=== PATIENT | male | born 1935 | race Caucasian/White ===

== ENCOUNTER 2017-09-04 22:51 | Inpatient (IN) ==
[2017-09-04 23:30] LABS: Basophils # 0.1 K/mcL (0.0-0.2); Basophils % 0.4 %; Eosinophils # 0.4 K/mcL (0.0-0.6); Eosinophils % 3.4 %; Hematocrit 40.8 % (37.5-50.1); Hemoglobin 13.3 g/dL (12.9-16.9); Immature Granulocytes % 0.8 % (0-4); Lymphocytes # 1.4 K/mcL (0.6-4.6); Lymphocytes % 11.6 %; Mean Corpuscular HGB Conc 32.6 g/dL (31.6-35.5); Mean Corpuscular Hemoglobin 29.9 pg (28.0-33.3); Mean Corpuscular Volume 91.7 fL (83.0-100.0); Mean Platelet Volume 9.3 fL (9.4-12.4); Monocytes # 0.6 K/mcL (0.0-1.3); Monocytes % 4.6 %; Neutrophils # 9.5 K/mcL (1.6-8.9); Platelet Count 246 K/mcL (140-400); Red Blood Count 4.45 M/mcL (4.19-5.50); Red Cell Distribution Width 13.2 % (11.5-14.5); Segmented Neutrophils % 79.2 %
[2017-09-04 23:41] LABS: INR 2.2; Prothrombin Time 23.9 Seconds (9.4-12.1)
[2017-09-04 23:43] LABS: Activated Partial Thrombo Time 40.2 Seconds (26.0-36.0)
[2017-09-04 23:49] LABS: Troponin I < 0.03 ng/mL (< 0.04)
--- NOTE | 2017-09-05 00:27 | Emergency Department Note ---
Disposition Clinical Impression: Community acquired pneumonia Qualifiers: Laterality: unspecified laterality Qualified Code(s): J18.9 - Pneumonia, unspecified organism Dyspnea Qualifiers: Dyspnea type: unspecified Qualified Code(s): R06.00 - Dyspnea, unspecified Disposition: Admitted As Inpatient Condition: Good Time of Disposition: 02:09 SOB HPI - General Chief Complaint: ED Shortness of Breath/Dyspnea Stated Complaint: MARTI, Cough Time Seen by Provider: 09/04/17 23:07 Source: patient Limitations: no limitations Nursing Notes Reviewed: Yes Vital Signs Reviewed: Yes - History of Present Illness 82-year-old male complains of difficulty breathing, cough. He mentions a history of COPD, throat cancer, CHF, chronic A. fib. He states that he has had some difficulty breathing, however it had worsened acutely today. He mentions he has some fevers and chills lately as well. He mentions that his difficulty breathing is not worsens when he lies supine. He does mention that his breathing became more comfortable after getting nasal cannula oxygen after arrival He does mention he has bilateral lower extremity edema, but states it is not worse than it normally is. He describes his compliance with his medications. He mentions he sees his curriculum assistant principal Dr. Cline and a regular basis. He denies any hemoptysis, abdominal pain, confusion, nausea, vomiting. - Related Data Home Medications Medication Instructions Recorded Confirmed Budesonide/Formoterol Fumarate 2 puff PO BID 02/06/15 09/05/17 [Symbicort 160-4.5 Mcg Inhaler] Furosemide [Lasix] 40 mg PO DAILY PRN 02/06/15 09/05/17 Loratadine [Claritin] 10 mg PO DAILY 02/06/15 09/05/17 Metoprolol [Lopressor] 50 mg PO BID 02/06/15 09/05/17 Nitroglycerin [Nitrostat] 0.4 mg SL Q5M PRN #0 02/06/15 09/05/17 Omeprazole [PriLOSEC] 20 mg PO DAILY 02/06/15 09/05/17 Tiotropium [Spiriva] 1 puff IH 0700 02/06/15 09/05/17 Warfarin Sodium [Coumadin] 2.5 mg PO AD 02/06/15 09/05/17 Albuterol Sulfate [Albuterol 2 puff IH Q4HR PRN 03/03/15 09/05/17 Inhaler] Diltiazem CD (24hr) [Cardizem CD] 180 mg PO DAILY 06/27/15 09/05/17 Aspirin Enteric Coated [Aspirin EC] 81 mg PO DAILY 08/28/16 09/05/17 Atorvastatin Calcium [Lipitor] 20 mg PO HS 08/28/16 09/05/17 Levothyroxine [Synthroid] 75 mcg PO 0600 08/28/16 09/05/17 Oxycodone HCl/Acetaminophen 1 each PO Q6H PRN 12/31/16 05/20/17 [Percocet 10-325 mg Tablet] OxyCODONE Immed Rel [Roxicodone 10 10 mg PO QID 09/05/17 09/05/17 MG] Allergies Allergy/AdvReac Type Severity Reaction Status Date / Time No Known Allergies Allergy Verified 05/20/17 10:16 All systems ED: reviewed and negative except as stated. Review of Systems: As Per HPI Constitutional: Reports: fever, chills Eyes: Denies: vision change ENT ED: Denies: throat pain Cardiovascular: Denies: chest pain, palpitations Respiratory: Reports: cough, dyspnea. Denies: wheezes, hemoptysis Gastrointestinal: Denies: abdominal pain, nausea, vomiting Genitourinary: Denies: dysuria Musculoskeletal: Denies: neck pain Integumentary: Denies: rash Neurological: Denies: headache Endocrine: Denies: fatigue Hematological/Lymphatic: Denies: easy bleeding Allergic/Immunologic: Denies: facial swelling Past Medical History - Past Medical History Medical history: Reports: arthritis, atrial fibrillation, cancer, COPD, coronary artery disease, GERD, hyperlipidemia, hypertension, myocardial infarction, peripheral artery disease, other Surgical history: Reports: angioplasty/stent, cholecystectomy, other Psychiatric history: Reports: no psych history - Social History Smoking Status: Former smoker Smokeless Tobacco Status: No Alcohol use: Reports: none Drug use: Reports: none Physical Exam - General Limitations: no limitations General appearance: alert, in no apparent distress - Head Head exam: normocephalic - Eye Eye exam: Present: EOMI - ENT ENT exam: mucous membranes moist - Neck Neck exam: Present: full ROM - Chest Chest inspection: Present: symmetric chest wall rise - Respiratory Respiratory exam: Present: normal lung sounds bilaterally. Absent: respiratory distress - Cardiovascular Cardiovascular exam: Present: regular rate - Abdominal Exam Abdominal exam: Present: soft, Non-Tender - Extremities Exam Extremities exam: Present: normal inspection, full ROM, normal capillary refill - Back Exam Back exam: Present: full ROM - Neurological Exam Neurological exam: Present: alert - Psychiatric Psychiatric exam: Present: normal affect, normal mood - Skin Skin exam: Present: warm, dry, intact, normal color. Absent: rash, cyanosis, diaphoresis Course Course Narrative: 82-year-old male with known history of A. fib, CHF, COPD who presents with worsening difficulty breathing that started today. Workup initiated. - Reevaluation(s) Reevaluation #1: Slight elevation in white blood cell count. BNP slightly elevated, but better than previous readings 2 months ago. Patient's chest x-ray concerning for bilateral lower lobe pneumonia. Patient denies any recent admissions to health care facilities, states he lives at home. Blood cultures and lactic acid have been ordered on initial workup. We will initiate antibiotics. We will withhold fluids at this point due to concern for CHF and fluid overload. Time: 00:28 Reevaluation #2: Discussed with Dr. Black who agreed with admission. We will page hospitalist. Time: 01:24 Reevaluation #3: Pt discussed with and accepted by hospitalist Dr. Jones Time: 02:09 Vital Signs Temperature 99.5 F 09/04/17 22:53 Pulse Rate 99 09/04/17 22:53 Respiratory Rate 18 09/04/17 22:53 Blood Pressure 115/75 09/04/17 22:53 O2 Sat by Pulse Oximetry 91 09/04/17 22:53 Temperature 97.9 F 09/05/17 02:51 Pulse Rate 102 09/05/17 02:51 Respiratory Rate 18 09/05/17 02:51 Blood Pressure 109/62 09/05/17 02:51 O2 Sat by Pulse Oximetry 95 09/05/17 02:51 Oxygen Delivery Oxygen Delivery Nasal Cannula Shortness of Breath/Dyspnea - Lab Data Lab results reviewed: Yes I reviewed the patient's lab results. Result diagrams: 09/05/17 04:25 09/05/17 04:25 Lab Results 09/04/17 09/04/17 09/04/17 Range/Units 23:16 23:16 23:16 WBC 12.0 H (4.3-11.1) K/mcL RBC 4.45 (4.19-5.50) M/mcL Hgb 13.3 (12.9-16.9) g/dL Hct 40.8 (37.5-50.1) % MCV 91.7 (83.0-100.0) fL MCH 29.9 (28.0-33.3) pg MCHC 32.6 (31.6-35.5) g/dL RDW 13.2 (11.5-14.5) % Plt Count 246 (140-400) K/mcL MPV 9.3 L (9.4-12.4) fL Immature Gran % 0.8 (0-4) % Seg Neutrophils % 79.2 % Lymphocytes % 11.6 % Monocytes % 4.6 % Eosinophils % 3.4 % Basophils % 0.4 % Neutrophils # 9.5 H (1.6-8.9) K/mcL Lymphocytes # 1.4 (0.6-4.6) K/mcL Monocytes # 0.6 (0.0-1.3) K/mcL Eosinophils # 0.4 (0.0-0.6) K/mcL Basophils # 0.1 (0.0-0.2) K/mcL PT (9.4-12.1) Seconds INR APTT (26.0-36.0) Seconds Sodium 136 (136-145) mEq/L Potassium 4.2 (3.5-5.1) mEq/L Chloride 99 (98-107) mEq/L Carbon Dioxide 29 (23-29) mEq/L BUN 18 (8-23) mg/dL Creatinine 1.40 H (0.70-1.30) mg/dL Est GFR ( Amer) 59 L (> 60) Est GFR (Non-Af Amer) 49 L (> 60) BUN/Creatinine Ratio 13 (6-26) Glucose 111 H (70-105) mg/dL Calculated Osmolality 285 (280-300) Lactic Acid 1.2 (0.5-2.2) mmol/L Calcium 8.8 (8.6-10.3) mg/dL Troponin I < 0.03 (< 0.04) ng/mL B-Natriuretic Peptide (Less than 100) pg/mL TSH 4.037 (0.340-5.600) mcIU/mL 09/04/17 09/04/17 Range/Units 23:16 23:17 WBC (4.3-11.1) K/mcL RBC (4.19-5.50) M/mcL Hgb (12.9-16.9) g/dL Hct (37.5-50.1) % MCV (83.0-100.0) fL MCH (28.0-33.3) pg MCHC (31.6-35.5) g/dL RDW (11.5-14.5) % Plt Count (140-400) K/mcL MPV (9.4-12.4) fL Immature Gran % (0-4) % Seg Neutrophils % % Lymphocytes % % Monocytes % % Eosinophils % % Basophils % % Neutrophils # (1.6-8.9) K/mcL Lymphocytes # (0.6-4.6) K/mcL Monocytes # (0.0-1.3) K/mcL Eosinophils # (0.0-0.6) K/mcL Basophils # (0.0-0.2) K/mcL PT 23.9 H (9.4-12.1) Seconds INR 2.2 APTT 40.2 H (26.0-36.0) Seconds Sodium (136-145) mEq/L Potassium (3.5-5.1) mEq/L Chloride (98-107) mEq/L Carbon Dioxide (23-29) mEq/L BUN (8-23) mg/dL Creatinine (0.70-1.30) mg/dL Est GFR ( Amer) (> 60) Est GFR (Non-Af Amer) (> 60) BUN/Creatinine Ratio (6-26) Glucose (70-105) mg/dL Calculated Osmolality (280-300) Lactic Acid (0.5-2.2) mmol/L Calcium (8.6-10.3) mg/dL Troponin I (< 0.04) ng/mL B-Natriuretic Peptide 200 H (Less than 100) pg/mL TSH (0.340-5.600) mcIU/mL - Radiology Data Radiology results reviewed: Yes I reviewed the patient's radiology results. - EKG Data EKG attestation: Yes I reviewed and interpreted this EKG. EKG results narrative: sinus tachy with occasional PVC
[2017-09-05] MEDS ORDERED: Levofloxacin 750 MG/150 ML 750 MG/150 ML BAG IVPB ONE (00:31)
[2017-09-05 00:49] LABS: BUN/Creatinine Ratio 13 (6-26); Blood Urea Nitrogen 18 mg/dL (8-23); Calcium 8.8 mg/dL (8.6-10.3); Carbon Dioxide 29 mEq/L (23-29); Chloride 99 mEq/L (98-107); Glucose 111 mg/dL (70-105); Osmolality,Calculated 285 (280-300); Potassium 4.2 mEq/L (3.5-5.1); Sodium 136 mEq/L (136-145); eGFR For Non-African Americans 49 (> 60)
[2017-09-05 01:14] LABS: Thyroid Stimulating Hormone 4.037 mcIU/mL (0.340-5.600)
[2017-09-05] MEDS ORDERED: Naloxone 0.4 MG/ML INJ IVP PRN (02:33)
[2017-09-05] MEDS ORDERED: Acetaminophen 325 MG TABLET PO PRN (02:33)
[2017-09-05] MEDS ORDERED: Furosemide 40 MG TABLET PO PRN (02:39)
--- NOTE | 2017-09-05 02:44 | Internal Med History&Physical ---
Date of Encounter: 09/05/17 Time of Encounter: 02:00 Assessment and Plan (1) COPD (chronic obstructive pulmonary disease) Current visit: Yes Status: Acute No wheezing. No signs of exacerbation. Continue home medications. Qualifiers: COPD type: emphysema Emphysema type: unspecified Qualified Code(s): J43.9 - Emphysema, unspecified (2) Community acquired pneumonia Current visit: Yes Status: Acute Patient has cough with yellowish sputum, leukocytosis, increased or shortness of breath. Chest x-ray shows bilateral basal pneumonia. - We will treat patient as community-acquired pneumonia with azithromycin and Rocephin - Continue nasal cannula oxygen Qualifiers: Laterality: unspecified laterality Qualified Code(s): J18.9 - Pneumonia, unspecified organism (3) Chronic a-fib Current visit: No Status: Acute Heart rate is a generally controlled. On Coumadin for anticoagulation. Continue home medications. (4) Asbestosis Current visit: No Status: Chronic Continue close monitoring and outpatient follow-up (5) CAD (coronary artery disease) Current visit: No Status: Chronic S/P stent. No chest pain. Continue home medication aspirin, beta jesse, and statin Qualifiers: Coronary Disease-Associated Artery/Lesion type: [place] artery [place] vs. transplanted heart: [place] heart Associated angina: without angina Qualified Code(s): I25.10 - Atherosclerotic heart disease of [place] coronary artery without angina pectoris (6) Head and neck cancer Current visit: No Status: Resolved S/P surgery 6 years ago. Patient has dysphagia right after surgery. Now he said he eats regular diet at home (7) DVT prophylaxis Current visit: Yes Status: Acute Patient is on Coumadin. INR is therapeutic Internal Medicine - H&P: HPI Chief complaint: SOB Admitted From: Home Plans for Post Hospital Care: Home History of present illness: Mr. Kraft is a 82 year old male with history of A. fib S/P PPM on Coumadin, oral cancer, CAD S/P stents, COPD, asbestosis, presented to ER for shortness of breath. Patient said he started to have shortness of breath and cough since Thursday. Patient has a yellowish sputum. Patient has subjective fever. Patient denies chest pain, nausea, vomiting, abdominal pain, or diarrhea. In emergency room, CXR shows bilateral basal pneumonia. Patient has not been hospitalized in the last 3 months. He was admitted as community acquired pneumonia. Past Med Surg Social Fam HX - Past Medical History Medical history: arthritis, atrial fibrillation, cancer, COPD, coronary artery disease, GERD, hyperlipidemia, hypertension, myocardial infarction, peripheral artery disease, other Psychiatric history: no psych history - Past Surgical History Surgical History: angioplasty/stent, cholecystectomy, other - Social History Smoking Status: Former smoker Smokeless Tobacco Status: No Alcohol use: none Drug use: none - Family History Mother Living Status: Hx Family Cardiac Disorders: Yes ([place], CAD, HTN, HLD) Hx Family Respiratory Disorders: No Father Living Status: Hx Family Cardiac Disorders: Yes ([place], HLD, HTN) Hx Family Respiratory Disorders: No Brother Hx Family Cardiac Disorders: Yes ([place] with stent) Sister Hx Family Cardiac Disorders: Yes ([place] with stent) Internal Medicine - H&P: Meds Budesonide/Formoterol Fumarate [Symbicort 160-4.5 Mcg Inhaler] 2 puff PO BID 10/18 [History] Furosemide [Lasix] 40 mg PO DAILY PRN 02/06/15 [History] Loratadine [Claritin] 10 mg PO DAILY 02/06/15 [History] Metoprolol [Lopressor] 50 mg PO BID 02/06/15 [History] Nitroglycerin [Nitrostat] 0.4 mg SL Q5M PRN #0 02/06/15 [History] Omeprazole [PriLOSEC] 20 mg PO DAILY 02/06/15 [History] Tiotropium [Spiriva] 1 puff IH 0700 02/06/15 [History] Warfarin Sodium [Coumadin] 2.5 mg PO AD 02/06/15 [History] Albuterol Sulfate [Albuterol Inhaler] 2 puff IH Q4HR PRN 03/03/15 [History] Diltiazem CD (24hr) [Cardizem CD] 180 mg PO DAILY 06/27/15 [History] Aspirin Enteric Coated [Aspirin EC] 81 mg PO DAILY 08/28/16 [History] Atorvastatin Calcium [Lipitor] 20 mg PO HS 08/28/16 [History] Levothyroxine [Synthroid] 50 mcg PO HS 08/28/16 [History] Oxycodone HCl/Acetaminophen [Percocet 10-325 mg Tablet] 1 each PO Q6H PRN [History] 3 Allergy/AdvReac Type Severity Reaction Status Date / Time No Known Allergies Allergy Verified 05/20/17 10:16 All Systems PM: A 10-system review of systems was performed and is negative for pertinent findings except as documented above in the HPI. - Constitutional Vitals: Temp Pulse Resp BP Pulse Ox 99.5 F 86 16 130/55 95 09/04/17 22:53 09/05/17 01:30 09/05/17 02:36 09/05/17 02:36 09/05/17 01:30 General appearance: Present: A&O X 3, no acute distress, answers questions appropriately - Head Head exam: Present: atraumatic, normocephalic - Eye Eye exam: Present: PERRL, conjuntiva pink, sclera anicteric Pupils: Present: PERRL - Neck Neck exam general surgery: Present: supple, trachea midline. Absent: lymphadenopathy - Respiratory Respiratory exam: Present: CTAB, rales (Bilateral at lung base). Absent: accessory muscle use, rhonchi, wheezes - Cardiovascular Cardiovascular exam: Present: RRR, +S1, +S2. Absent: diastolic murmur, gallop, rubs, systolic murmur - GI/Abdominal GI/Abdominal exam: Present: normal bowel sounds, soft, no peritoneal signs. Absent: distended, tenderness - Extremities Exam Extremities exam: Present: pedal edema (Mild to moderate bilateral pitting pedal edema), warm, radial pulses palpable and symmetrical. Absent: calf tenderness, cyanotic - Neurological Exam Neurological exam: Present: CN II-XII intact, oriented X3, no focal deficits. Absent: pronater drift, facial droop, speech deficit - Skin Skin exam: Present: dry, intact Internal Med - H&P Results - Labs CBC & Chem 7: 09/04/17 23:16 09/04/17 23:16 - EKG Data -: EKG Interpreted by Myself EKG shows normal: sinus rhythm Rate: tachycardia
[2017-09-05] MEDS ORDERED: Nitroglycerin 0.4 MG TAB.SUBL SL PRN (03:41)
[2017-09-05] MEDS: Azithromycin 500 MG in D5% in Water 250 ML IVPB SCH (04:02)
[2017-09-05] MEDS: *HR* OxyCODONE Immed Rel 5 MG TABLET PO PRN ×3 (04:07→17:37)
[2017-09-05 05:09] LABS: Basophils # 0.1 K/mcL (0.0-0.2); Basophils % 0.4 %; Eosinophils # 0.2 K/mcL (0.0-0.6); Eosinophils % 1.3 %; Hematocrit 38.3 % (37.5-50.1); Hemoglobin 12.3 g/dL (12.9-16.9); Immature Granulocytes % 0.4 % (0-4); Lymphocytes # 0.9 K/mcL (0.6-4.6); Lymphocytes % 7.7 %; Mean Corpuscular HGB Conc 32.1 g/dL (31.6-35.5); Mean Corpuscular Hemoglobin 29.6 pg (28.0-33.3); Mean Corpuscular Volume 92.1 fL (83.0-100.0); Mean Platelet Volume 9.6 fL (9.4-12.4); Monocytes # 0.7 K/mcL (0.0-1.3); Monocytes % 5.6 %; Neutrophils # 10.1 K/mcL (1.6-8.9); Platelet Count 199 K/mcL (140-400); Red Blood Count 4.16 M/mcL (4.19-5.50); Red Cell Distribution Width 13.2 % (11.5-14.5); Segmented Neutrophils % 84.6 %
[2017-09-05 05:29] LABS: BUN/Creatinine Ratio 15 (6-26); Blood Urea Nitrogen 19 mg/dL (8-23); Calcium 8.8 mg/dL (8.6-10.3); Carbon Dioxide 31 mEq/L (23-29); Chloride 97 mEq/L (98-107); Glucose 126 mg/dL (70-105); INR 2.5; Magnesium 1.4 mg/dL (1.6-2.6); Osmolality,Calculated 284 (280-300); Potassium 4.1 mEq/L (3.5-5.1); Prothrombin Time 27.6 Seconds (9.4-12.1); Sodium 135 mEq/L (136-145); eGFR For Non-African Americans 56 (> 60)
[2017-09-05] MEDS: Tiotropium 18 MCG inhalation IH SCH (07:40)
[2017-09-05] MEDS: Budesonide/Formoterol 160/4.5 1 PUFF INH IH SCH ×2 (07:40→20:18)
--- NOTE | 2017-09-05 07:40 | Emergency Department Note ---
Attestation Statement - Attestation Attestation: For this encounter, I have reviewed the DIRECT SERVICE PROVIDER or PA documentation, treatment plan, and medical decision making. Case discussed with the PA and test results reviewed. Agree with hospital admission. I did not have face to face time with this patient. Patient is an 82-year-old male who presented complaining of some increased shortness of breath for the past several days but acutely worse for one day. Workup revealed new bibasilar airspace disease on chest x-ray consistent with pneumonia. Mild leukocytosis noted. The hospitalist, Dr. Jones, was consulted and accepted admission of the patient.
[2017-09-05] MEDS: cefTRIAXone 1,000 MG in Water for inj. (sterile) 20 ML 10 ML IVP SCH (09:15)
[2017-09-05] MEDS: Aspirin Enteric Coated 81 MG Tablet PO SCH (09:15)
[2017-09-05] MEDS: Loratadine 10 MG TABLET PO SCH (09:16)
[2017-09-05] MEDS: Furosemide 40 MG TABLET PO SCH (09:16)
[2017-09-05] MEDS: Diltiazem CD (24hr) 180 MG CAPSULE PO SCH (09:17)
[2017-09-05 15:54] LABS: Adenovirus Not Detected (Not Detect); Bordetella Pertussis Not Detected (Not Detect); Chlamydophila pneumoniae Not Detected (Not Detect); Coronavirus 229E Not Detected (Not Detect); Coronavirus HKU1 Not Detected (Not Detect); Coronavirus NL63 Not Detected (Not Detect); Coronavirus OC43 Not Detected (Not Detect); Human Metapneumovirus Not Detected (Not Detect); Human Rhinovirus/Enterovirus Not Detected (Not Detect); Influenza A Subtype 2009 H1 Not Detected (Not Detect); Influenza A Untypeable Not Detected (Not Detect); Influenza B ***DETECTED*** (Not Detect); Mycoplasma pneumoniae Not Detected (Not Detect); Parainfluenza Virus 1 Not Detected (Not Detect); Parainfluenza Virus 2 Not Detected (Not Detect); Parainfluenza Virus 3 Not Detected (Not Detect); Parainfluenza Virus 4 Not Detected (Not Detect); Respiratory Syncytial Virus Not Detected (Not Detect)
--- NOTE | 2017-09-05 17:48 | Event Note ---
Date of Encounter: 09/05/17 Time of Encounter: 11:00 Patient seen and evaluated by associate editor earlier this morning and also by myself Will continue IV azithromycin and IV ceftriaxone for community acquired pneumonia Respiratory panel/cultures pending
[2017-09-05] MEDS ORDERED: *HR* Warfarin 3 MG TABLET PO ONE (18:00)
[2017-09-05] MEDS ORDERED: Warfarin perPT PO PRN (18:00)
[2017-09-06] MEDS: Azithromycin 500 MG in D5% in Water 250 ML IVPB SCH (03:28)
[2017-09-06] MEDS: *HR* OxyCODONE Immed Rel 5 MG TABLET PO PRN ×2 (03:55→20:03)
[2017-09-06 05:26] LABS: INR 2.1; Prothrombin Time 23.1 Seconds (9.4-12.1)
[2017-09-06] MEDS: Tiotropium 18 MCG inhalation IH SCH (07:45)
[2017-09-06] MEDS: Budesonide/Formoterol 160/4.5 1 PUFF INH IH SCH ×2 (07:45→21:07)
[2017-09-06] MEDS: Loratadine 10 MG TABLET PO SCH (07:55)
[2017-09-06] MEDS: Diltiazem CD (24hr) 180 MG CAPSULE PO SCH (07:55)
[2017-09-06] MEDS: cefTRIAXone 1,000 MG in Water for inj. (sterile) 20 ML 10 ML IVP SCH (07:55)
[2017-09-06] MEDS: Furosemide 40 MG TABLET PO SCH (07:55)
[2017-09-06] MEDS: Aspirin Enteric Coated 81 MG Tablet PO SCH (07:55)
[2017-09-06] MEDS: Oseltamivir Phosphate 30 MG CAPSULE PO SCH ×2 (11:37→20:03)
[2017-09-06 11:45] LABS: BUN/Creatinine Ratio 16 (6-26); Blood Urea Nitrogen 17 mg/dL (8-23); Calcium 9.4 mg/dL (8.6-10.3); Carbon Dioxide 30 mEq/L (23-29); Chloride 96 mEq/L (98-107); Glucose 119 mg/dL (70-105); Osmolality,Calculated 277 (280-300); Potassium 3.7 mEq/L (3.5-5.1); Sodium 132 mEq/L (136-145); eGFR For Non-African Americans > 60 (> 60)
[2017-09-06 11:47] LABS: Basophils % 0.2 %; Eosinophils # 0.2 K/mcL (0.0-0.6); Eosinophils % 1.9 %; Hematocrit 38.9 % (37.5-50.1); Hemoglobin 12.7 g/dL (12.9-16.9); Immature Granulocytes % 0.4 % (0-4); Lymphocytes # 0.8 K/mcL (0.6-4.6); Mean Corpuscular HGB Conc 32.6 g/dL (31.6-35.5); Mean Corpuscular Hemoglobin 29.9 pg (28.0-33.3); Mean Corpuscular Volume 91.5 fL (83.0-100.0); Monocytes # 0.5 K/mcL (0.0-1.3); Monocytes % 5.5 %; Neutrophils # 7.7 K/mcL (1.6-8.9); Platelet Count 204 K/mcL (140-400); Red Blood Count 4.25 M/mcL (4.19-5.50); Red Cell Distribution Width 13.2 % (11.5-14.5)
--- NOTE | 2017-09-06 17:49 | Internal Med Progress Note ---
Date of Encounter: 09/06/17 Time of Encounter: 11:00 - Assessment and plan (1) Influenza B Current Visit: Yes Status: Acute Assessment and plan: Patient found to be positive for influenza B on 09/06/17 and Tamiflu started (2) Community acquired pneumonia Current Visit: Yes Status: Acute Assessment and plan: Patient noted to have infiltrates on chest x-ray so we will continue IV ceftriaxone and IV azithromycin Qualifiers: Laterality: unspecified laterality Qualified Code(s): J18.9 - Pneumonia, unspecified organism (3) HTN (hypertension) Current Visit: No Status: Chronic Qualifiers: Hypertension type: essential hypertension Qualified Code(s): I10 - Essential (primary) hypertension (4) Hypothyroidism (acquired) Current Visit: No Status: Chronic (5) Chronic a-fib Current Visit: No Status: Acute Assessment and plan: Continue rate control with beta jesse and anticoagulation with Coumadin (6) COPD (chronic obstructive pulmonary disease) Current Visit: Yes Status: Acute Assessment and plan: Continue home Spiriva, Symbicort and albuterol as needed Qualifiers: COPD type: emphysema Emphysema type: unspecified Qualified Code(s): J43.9 - Emphysema, unspecified (7) DVT prophylaxis Current Visit: Yes Status: Acute Assessment and plan: On Coumadin - Subjective Interval history: Patient still short of breath this morning requiring supplemental oxygenation at 2 L She is afebrile and her leukocytosis has resolved - Constitutional Vitals: Temp Pulse Resp BP Pulse Ox 97.3 F L 79 19 92/55 93 09/06/17 15:38 09/06/17 15:38 09/06/17 15:38 09/06/17 15:38 09/06/17 15:38 General appearance: Present: A&O X 3, no acute distress, answers questions appropriately - Respiratory Respiratory exam: Present: wheezes. Absent: respiratory distress - Cardiovascular Cardiovascular exam: Present: RRR, +S1, +S2. Absent: diastolic murmur, gallop, rubs, systolic murmur Internal Medicine: Result - Labs CBC & Chem 7: 09/06/17 10:33 09/06/17 10:33 Labs: Short CBC 09/06/17 Range/Units 10:33 WBC 9.2 (4.3-11.1) K/mcL Hgb 12.7 L (12.9-16.9) g/dL Hct 38.9 (37.5-50.1) % Plt Count 204 (140-400) K/mcL Neutrophils # 7.7 (1.6-8.9) K/mcL BMP 09/06/17 10:33 Sodium 132 L Potassium 3.7 Chloride 96 L Carbon Dioxide 30 H BUN 17 Creatinine 1.04 Glucose 119 H Calcium 9.4 - ABG Interpretation ABG results: PT/INR, D-dimer PT 23.1 Seconds (9.4-12.1) H 09/06/17 04:38 Consult Discharge Plan - Plan Referrals: Michael Meyers DO [Primary Care Provider] -
[2017-09-06] MEDS ORDERED: *HR* Warfarin 3 MG TABLET PO ONE (18:00)
[2017-09-07] MEDS: Azithromycin 500 MG in D5% in Water 250 ML IVPB SCH (03:19)
[2017-09-07] MEDS: *HR* OxyCODONE Immed Rel 5 MG TABLET PO PRN ×2 (05:30→23:01)
[2017-09-07 07:46] LABS: INR 2.2; Prothrombin Time 23.7 Seconds (9.4-12.1)
[2017-09-07] MEDS: Budesonide/Formoterol 160/4.5 1 PUFF INH IH SCH ×2 (08:04→20:01)
[2017-09-07] MEDS: Tiotropium 18 MCG inhalation IH SCH (08:05)
[2017-09-07] MEDS: Oseltamivir Phosphate 30 MG CAPSULE PO SCH ×2 (08:54→20:13)
[2017-09-07] MEDS: Furosemide 40 MG TABLET PO SCH (08:54)
[2017-09-07] MEDS: Aspirin Enteric Coated 81 MG Tablet PO SCH (08:54)
[2017-09-07] MEDS: Diltiazem CD (24hr) 180 MG CAPSULE PO SCH (08:54)
[2017-09-07] MEDS: Loratadine 10 MG TABLET PO SCH (08:54)
[2017-09-07] MEDS: cefTRIAXone 1,000 MG in Water for inj. (sterile) 20 ML 10 ML IVP SCH (08:55)
--- NOTE | 2017-09-07 17:42 | Internal Med Progress Note ---
Date of Encounter: 09/07/17 Time of Encounter: 11:00 - Assessment and plan (1) Influenza B Current Visit: Yes Status: Acute Assessment and plan: Patient continues to have generalized weakness Continue day 2 of 5 Tamiflu (2) Community acquired pneumonia Current Visit: Yes Status: Acute Assessment and plan: Patient noted to have infiltrates on chest x-ray so we will continue IV ceftriaxone and IV azithromycin Qualifiers: Laterality: unspecified laterality Qualified Code(s): J18.9 - Pneumonia, unspecified organism (3) HTN (hypertension) Current Visit: No Status: Chronic Assessment and plan: Controlled; continue beta jesse Qualifiers: Hypertension type: essential hypertension Qualified Code(s): I10 - Essential (primary) hypertension (4) Hypothyroidism (acquired) Current Visit: No Status: Chronic Assessment and plan: Continue levothyroxine (5) Chronic a-fib Current Visit: No Status: Acute Assessment and plan: Continue rate control with beta jesse and anticoagulation with Coumadin (6) COPD (chronic obstructive pulmonary disease) Current Visit: Yes Status: Acute Assessment and plan: Continue home Spiriva, Symbicort and albuterol as needed Qualifiers: COPD type: emphysema Emphysema type: unspecified Qualified Code(s): J43.9 - Emphysema, unspecified (7) DVT prophylaxis Current Visit: Yes Status: Acute Assessment and plan: On Coumadin - Subjective Interval history: Patient still short of breath this morning requiring supplemental oxygenation at 2 L He continues to be afebrile and his leukocytosis has resolved Patient still with generalized weakness - Constitutional Vitals: Temp Pulse Resp BP Pulse Ox 97.1 F L 81 18 108/67 95 09/07/17 17:12 09/07/17 17:12 09/07/17 17:12 09/07/17 17:12 09/07/17 17:12 General appearance: Present: A&O X 3, no acute distress (Generalized weakness), answers questions appropriately - Respiratory Respiratory exam: Present: CTAB. Absent: accessory muscle use, rales, rhonchi, wheezes - Cardiovascular Cardiovascular exam: Present: RRR, +S1, +S2. Absent: diastolic murmur, gallop, rubs, systolic murmur Internal Medicine: Result - Labs CBC & Chem 7: 09/06/17 10:33 09/06/17 10:33 - ABG Interpretation ABG results: PT/INR, D-dimer PT 23.7 Seconds (9.4-12.1) H 09/07/17 07:14 Consult Discharge Plan - Plan Referrals: Michael Meyers DO [Primary Care Provider] -
[2017-09-07] MEDS ORDERED: *HR* Warfarin 2.5 MG TABLET PO ONE (18:00)
[2017-09-08 06:19] LABS: INR 2.3; Prothrombin Time 24.8 Seconds (9.4-12.1)
[2017-09-08] MEDS: *HR* OxyCODONE Immed Rel 5 MG TABLET PO PRN (07:48)
[2017-09-08] MEDS: Budesonide/Formoterol 160/4.5 1 PUFF INH IH SCH (07:58)
[2017-09-08] MEDS: Tiotropium 18 MCG inhalation IH SCH (07:58)
[2017-09-08] MEDS ORDERED: Azithromycin 250 MG TABLET PO SCH (09:00)
--- NOTE | 2017-09-08 09:02 | Electrocardiograph Report ---
[place] [id number] Test Date: 2017-09-04 Pat Name: Ayad Kraft Department: 104 Room: 2A43 Gender: M Senior [employer] Developer: FRED : 1935 Requested By: Thony Black Order Number: [id number] Reading MD: Dian Arevalo Measurements Intervals [place] Rate: 101 P: 71 NH: 185 QRS: -27 QRSD: 105 T: 83 QT: 325 QTc: 383 Interpretive Statements SINUS TACHYCARDIA WITH OCCASIONAL VENTRICULAR PREMATURE COMPLEXES WITH OCCASIONAL SUPRAVENTRICULAR PREMATURE COMPLEXES BORDERLINE LEFT AXIS DEVIATION [QRS AXIS < -20] Nonspecific T abnormalities diffuse leads Electronically Signed On 09-08-2017 9:01:00 EST by Dian Arevalo
[2017-09-08] MEDS: Diltiazem CD (24hr) 180 MG CAPSULE PO SCH (09:04)
[2017-09-08] MEDS: Loratadine 10 MG TABLET PO SCH (09:04)
[2017-09-08] MEDS: cefTRIAXone 1,000 MG in Water for inj. (sterile) 20 ML 10 ML IVP SCH (09:05)
[2017-09-08] MEDS: Oseltamivir Phosphate 30 MG CAPSULE PO SCH (09:05)
[2017-09-08] MEDS: Furosemide 40 MG TABLET PO SCH (09:05)
[2017-09-08] MEDS: Aspirin Enteric Coated 81 MG Tablet PO SCH (09:05)
[2017-09-08 11:34] VITALS: BP 119/69
--- NOTE | 2017-09-08 12:52 | Discharge Summary ---
Orders not resulted at time of discharge: Pending orders 09/05/17 17:46 Legionella Antigen [RM] Routine Streptococcal pneumoniae urin antigen [S. Pneumoniae Antigen] [RM] Routine 09/09/17 04:00 PT/INR [Prothrombin Time INR] [COAG] AM 0400 09/10/17 04:00 PT/INR [Prothrombin Time INR] [COAG] AM 0400 09/11/17 04:00 PT/INR [Prothrombin Time INR] [COAG] AM 0400 09/12/17 04:00 PT/INR [Prothrombin Time INR] [COAG] AM 0400 Date of Encounter: 09/08/17 Time of Encounter: 11:30 - Discharge Diagnosis (1) Influenza B Priority: Primary Status: Acute (2) Community acquired pneumonia Priority: Primary Status: Acute Qualifiers: Laterality: unspecified laterality Qualified Code(s): J18.9 - Pneumonia, unspecified organism (3) SUBHASH (acute kidney injury) Priority: Primary Status: Resolved (4) CKD (chronic kidney disease) Priority: Secondary Status: Chronic Qualifiers: Chronic kidney disease stage: stage 3 (moderate) Qualified Code(s): N18.3 - Chronic kidney disease, stage 3 (moderate) (5) COPD (chronic obstructive pulmonary disease) Priority: Secondary Status: Chronic Qualifiers: COPD type: emphysema Emphysema type: unspecified Qualified Code(s): J43.9 - Emphysema, unspecified (6) Chronic a-fib Priority: Secondary Status: Chronic (7) HTN (hypertension) Priority: Secondary Status: Chronic Qualifiers: Hypertension type: essential hypertension Qualified Code(s): I10 - Essential (primary) hypertension (8) Hypothyroidism (acquired) Priority: Secondary Status: Chronic Hospital course: Mr. Kraft is a 82 year old male with the above medical problems who was admitted with cough, dyspnea, fatigue and generalized weakness. Respiratory infection panel was positive for influenza B. Chest x-ray showed right basal infiltrates concerning for pneumonia. He was started on Tamiflu and empiric IV antibiotics-Rocephin and azithromycin. Patient received supportive care with IV hydration, bronchodilator nebulization and supplemental oxygen. 2 sets of peripheral blood cultures remain negative, sputum culture grows moderate Cassidy albicans, which may not be clinically significant. Serum creatinine was mildly elevated from baseline at the time of admission, which improved to baseline with IV hydration. Patient has been evaluated by me today, reports feeling much better, breathing better, not requiring supplemental oxygen and would like to be discharged home. He is medically stable for discharge with oral antibiotics. Discharge discussed with: patient, family - Time Spent with Patient Total time spent providing and/or coordinating discharge services: Greater than 30 minutes (45 min) - Discharge Medications Home Medications: Budesonide/Formoterol Fumarate [Symbicort 160-4.5 Mcg Inhaler] 2 puff IH BID 10/18 [History] Furosemide [Lasix] 40 mg PO QAM 02/06/15 [History] Loratadine [Claritin] 10 mg PO DAILY 02/06/15 [History] Metoprolol [Lopressor] 50 mg PO BID 02/06/15 [History] Nitroglycerin [Nitrostat] 0.4 mg SL Q5M PRN #0 02/06/15 [History] Omeprazole [PriLOSEC] 20 mg PO DAILY 02/06/15 [History] Tiotropium [Spiriva] 18 mcg IH DAILY 02/06/15 [History] Warfarin Sodium [Coumadin] 2.5 mg PO SUTUTH 02/06/15 [History] Albuterol Sulfate [Albuterol Inhaler] 2 puff IH Q4HR PRN 03/03/15 [History] Diltiazem CD (24hr) [Cardizem CD] 180 mg PO DAILY 06/27/15 [History] Aspirin Enteric Coated [Aspirin EC] 81 mg PO DAILY 08/28/16 [History] Atorvastatin Calcium [Lipitor] 20 mg PO HS 08/28/16 [History] Levothyroxine [Synthroid] 75 mcg PO DAILY 08/28/16 [History] Oxycodone HCl/Acetaminophen [Percocet 10-325 mg Tablet] 1 - 2 tab PO Q4-6H PRN 12/31/16 [History] Furosemide [Lasix] 20 mg PO QPM 09/05/17 [History] Potassium Chloride [Klor-Con Sprinkle] 10 meq PO DAILY 09/05/17 [History] Warfarin [Coumadin] 3 mg PO MOWEFRSA 09/05/17 [History] Allergies/Adverse Reactions: 3 Allergy/AdvReac Type Severity Reaction Status Date / Time No Known Allergies Allergy Verified 05/20/17 10:16 Date of admission: 09/05/17 02:33 Primary care physician: Michael Meyers Discharging clinician: Jeane Wong Anticipated date of discharge: 09/08/17 - Constitutional Vitals: Temp Pulse Resp BP Pulse Ox 97.6 F 94 20 119/69 98 09/08/17 11:30 09/08/17 11:30 09/08/17 11:30 09/08/17 11:30 09/08/17 11:30 General appearance: Present: A&O X 3, answers questions appropriately - Respiratory Respiratory exam: Present: CTAB. Absent: accessory muscle use, rales, rhonchi, wheezes - Patient Status Disposition: Home, Self-Care Condition: Good Functional capacity at discharge: independent ambulation Overall status at discharge: patient is progressing back to baseline - Discharge Instructions Follow Up With: Michael Meyers DO [Primary Care Provider] - Additional Instructions: F/up with PCP in 1-2 weeks - Diet and Activity Activity: resume usual activities as tolerated Diet: low fat, low cholesterol, low salt diet
[2017-09-08] MEDS ORDERED: *HR* Warfarin 2 MG TABLET PO ONE (18:00)
== END 2017-09-08 14:09 | disposition home or self-care (01) | DRG 194 ==
LOC: EMEROO 22:51 → 2ANU 22:51 → SUATTDRO 09-05 02:33 → 2ANU 09-05 02:39
PROVIDERS: ADMIT Internal Medicine; ATTEND Internal Medicine

== ENCOUNTER 2017-10-01 16:23 | Observation (INO) ==
[2017-10-01] MEDS ORDERED: Furosemide 40 MG/4 ML VIAL IVP ONE (17:15)
--- NOTE | 2017-10-01 17:20 | Emergency Department Note ---
Disposition Clinical Impression: Acute exacerbation of congestive heart failure Qualifiers: Heart failure type: unspecified Qualified Code(s): I50.9 - Heart failure, unspecified Disposition: Admitted As Inpatient Condition: Fair Referrals: Michael Meyers DO [Primary Care Provider] - Forms: ED Satisfaction Letter Time of Disposition: 18:46 SOB HPI - General Chief Complaint: ED Shortness of Breath/Dyspnea Stated Complaint: CHF sent from [facility] urgent care Time Seen by Provider: 10/01/17 16:44 Source: patient Mode of arrival: ambulatory Limitations: no limitations Vital Signs Reviewed: Yes - History of Present Illness Ayad Kraft is a 82-year-old male presenting with worsening shortness of breath for 2 days. He complains of orthopnea, proximal nocturnal dyspnea, cough , fatigue, and abdominal fullness. He has been noticing increasing abdominal distention and lower extremity edema. 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 He originally presented to [facility] urgent care, where he was evaluated with BNP and chest x-ray. BNP was elevated to 2720. Patient states that he has never experienced CHF in the past, though he does take Lasix at home. He is a former smoker, having quit 20 years ago, with 25 pack years of smoking history. - Related Data Home Medications Medication Instructions Recorded Confirmed Budesonide/Formoterol Fumarate 2 puff IH BID 02/06/15 09/05/17 [Symbicort 160-4.5 Mcg Inhaler] Furosemide [Lasix] 40 mg PO QAM 02/06/15 09/05/17 Loratadine [Claritin] 10 mg PO DAILY 02/06/15 09/05/17 Nitroglycerin [Nitrostat] 0.4 mg SL Q5M PRN #0 02/06/15 09/05/17 Omeprazole [PriLOSEC] 20 mg PO DAILY 02/06/15 09/05/17 Tiotropium [Spiriva] 18 mcg IH DAILY 02/06/15 09/05/17 Warfarin Sodium [Coumadin] 2.5 mg PO SUTUTH 02/06/15 09/05/17 Albuterol Sulfate [Albuterol 2 puff IH Q4HR PRN 03/03/15 09/05/17 Inhaler] Diltiazem CD (24hr) [Cardizem CD] 180 mg PO DAILY 06/27/15 09/05/17 Aspirin Enteric Coated [Aspirin EC] 81 mg PO DAILY 08/28/16 09/05/17 Atorvastatin Calcium [Lipitor] 20 mg PO HS 08/28/16 09/05/17 Oxycodone HCl/Acetaminophen 1 - 2 tab PO Q4-6H PRN 12/31/16 09/05/17 [Percocet 10-325 mg Tablet] Furosemide [Lasix] 20 mg PO QPM 09/05/17 09/05/17 Warfarin [Coumadin] 3 mg PO MOWEFRSA 09/05/17 09/05/17 Levothyroxine [Synthroid] 75 mcg PO 0630 10/01/17 10/01/17 Metoprolol [Lopressor] 50 mg PO BID 10/01/17 10/01/17 Warfarin [Coumadin] 2.5 mg PO SUTH 10/01/17 10/01/17 Allergies Allergy/AdvReac Type Severity Reaction Status Date / Time No Known Allergies Allergy Verified 10/01/17 16:38 Constitutional: Denies: fever, chills Cardiovascular: Reports: dyspnea on exertion, orthopnea, edema, paroxysmal nocturnal dyspnea. Denies: chest pain, palpitations Respiratory: Reports: cough. Denies: sputum production Gastrointestinal: Reports: abdominal pain Past Medical History - Past Medical History Medical history: Reports: arthritis, atrial fibrillation, cancer, CHF, COPD, coronary artery disease, GERD, hyperlipidemia, hypertension, myocardial infarction, peripheral artery disease, other Surgical history: Reports: angioplasty/stent, cholecystectomy, other Psychiatric history: Reports: no psych history - Social History Smoking Status: Former smoker Smokeless Tobacco Status: No Alcohol use: Reports: none Drug use: Reports: none Physical Exam - General Limitations: no limitations General appearance: alert, in no apparent distress - Head Head exam: atraumatic, normocephalic - Respiratory Respiratory exam: Absent: respiratory distress, accessory muscle use - Expanded Respiratory Exam Location: rales: Lower, Right, Left - Cardiovascular Cardiovascular exam: Present: regular rate, irregular rhythm, +S1, +S2 - Abdominal Exam Abdominal exam: Present: soft, tenderness, distention. Absent: guarding, rebound Abdominal tenderness: Present: suprapubic, mild - Extremities Exam Extremities exam: Present: pedal edema (to mid-singh) - Neurological Exam Neurological exam: Present: alert, oriented X3 - Psychiatric Psychiatric exam: Present: normal affect, normal mood - Skin Skin exam: Present: warm, dry Course Course Narrative: Patient with storied cardiac history presents from [facility] urgent care with 2 days of orthopnea and PND. Patient is in no acute distress and resting comfortably while sitting upright in bed. Rales readily apparent on auscultation. Outside labs indicate BNP of 2720 and chest x-ray is significant for pulmonary infiltrates, but there was no radiologist read attached to it. We will complete cardiac workup with BMP, CBC, repeat chest x-ray, EKG, and troponin. Patient administered 40 mg of Lasix IV. Lab work without significant findings. Chest x-ray showed pulmonary edema. Discuss case was admitting hospitalist. Patient is to be admitted for congestive heart failure exacerbation. Vital Signs Temperature 97.7 F 10/01/17 16:38 Pulse Rate 81 10/01/17 16:38 Respiratory Rate 20 10/01/17 16:38 Blood Pressure 125/72 10/01/17 16:38 O2 Sat by Pulse Oximetry 96 10/01/17 16:38 Temperature 97.7 F 10/01/17 16:38 Pulse Rate 79 10/01/17 17:16 Respiratory Rate 18 10/01/17 17:16 Blood Pressure 129/79 10/01/17 17:16 O2 Sat by Pulse Oximetry 97 10/01/17 17:16 Oxygen Delivery Oxygen Delivery Room Air Shortness of Breath/Dyspnea - Medical Records Medical records reviewed: Yes I reviewed the patient's medical records. - Lab Data Lab results reviewed: Yes I reviewed the patient's lab results. Result diagrams: 10/01/17 17:36 10/01/17 17:36 Lab Results 10/01/17 10/01/17 Range/Units 17:36 17:36 WBC 4.9 (4.3-11.1) K/mcL RBC 4.76 (4.19-5.50) M/mcL Hgb 14.3 (12.9-16.9) g/dL Hct 43.1 (37.5-50.1) % MCV 90.5 (83.0-100.0) fL MCH 30.0 (28.0-33.3) pg MCHC 33.2 (31.6-35.5) g/dL RDW 13.4 (11.5-14.5) % Plt Count 166 (140-400) K/mcL MPV 9.9 (9.4-12.4) fL Immature Gran % 0.6 (0-4) % Seg Neutrophils % 86.0 % Lymphocytes % 9.9 % Monocytes % 3.1 % Eosinophils % 0.0 % Basophils % 0.4 % Neutrophils # 4.2 (1.6-8.9) K/mcL Lymphocytes # 0.5 L (0.6-4.6) K/mcL Monocytes # 0.2 (0.0-1.3) K/mcL Eosinophils # 0.0 (0.0-0.6) K/mcL Basophils # 0.0 (0.0-0.2) K/mcL Nucleated RBCs/100 WBC 0.4 H (0) /100 WBC Sodium 135 L (136-145) mEq/L Potassium 4.0 (3.5-5.1) mEq/L Chloride 101 (98-107) mEq/L Carbon Dioxide 25 (23-29) mEq/L BUN 14 (8-23) mg/dL Creatinine 0.96 (0.70-1.30) mg/dL Est GFR ( Amer) > 60 (> 60) Est GFR (Non-Af Amer) > 60 (> 60) BUN/Creatinine Ratio 15 (6-26) Glucose 136 H (70-105) mg/dL Calculated Osmolality 283 (280-300) Calcium 9.4 (8.6-10.3) mg/dL Troponin I < 0.03 (< 0.04) ng/mL S.B.A.R. - S.B.A.R. Situation: Demographics, MOA Background: Presenting Complaint, Relevant PMH, Meds, & Allergies Assessment: Vital Signs, Course and respsone to treatment, Pertinant Lab Results S.B.A.R. Repor Time: 18:47
[2017-10-01 17:49] LABS: Basophils % 0.4 %; Hematocrit 43.1 % (37.5-50.1); Hemoglobin 14.3 g/dL (12.9-16.9); Immature Granulocytes % 0.6 % (0-4); Lymphocytes # 0.5 K/mcL (0.6-4.6); Lymphocytes % 9.9 %; Mean Corpuscular HGB Conc 33.2 g/dL (31.6-35.5); Mean Corpuscular Volume 90.5 fL (83.0-100.0); Mean Platelet Volume 9.9 fL (9.4-12.4); Monocytes # 0.2 K/mcL (0.0-1.3); Monocytes % 3.1 %; Neutrophils # 4.2 K/mcL (1.6-8.9); Nucleated Red Blood Cells 0.4 /100 WBC (0); Platelet Count 166 K/mcL (140-400); Red Blood Count 4.76 M/mcL (4.19-5.50); Red Cell Distribution Width 13.4 % (11.5-14.5)
[2017-10-01 18:17] LABS: BUN/Creatinine Ratio 15 (6-26); Blood Urea Nitrogen 14 mg/dL (8-23); Calcium 9.4 mg/dL (8.6-10.3); Carbon Dioxide 25 mEq/L (23-29); Chloride 101 mEq/L (98-107); Glucose 136 mg/dL (70-105); Osmolality,Calculated 283 (280-300); Sodium 135 mEq/L (136-145); Troponin I < 0.03 ng/mL (< 0.04); eGFR For African Americans > 60 (> 60); eGFR For Non-African Americans > 60 (> 60)
--- NOTE | 2017-10-01 18:46 | Emergency Department Note ---
Disposition Clinical Impression: Acute exacerbation of congestive heart failure Qualifiers: Heart failure type: unspecified Qualified Code(s): I50.9 - Heart failure, unspecified Disposition: Admitted As Inpatient Referrals: Michael Meyers DO [Primary Care Provider] - Forms: ED Satisfaction Letter General Adult HPI - General Chief complaint: ED Shortness of Breath/Dyspnea Stated complaint: CHF sent from [facility] urgent care Time Seen by Provider: 10/01/17 16:44 Source: patient Mode of arrival: ambulatory Limitations: no limitations - History of Present Illness Pain Scale: 5 - Related Data Home Medications Medication Instructions Recorded Confirmed Budesonide/Formoterol Fumarate 2 puff IH BID 02/06/15 09/05/17 [Symbicort 160-4.5 Mcg Inhaler] Furosemide [Lasix] 40 mg PO QAM 02/06/15 09/05/17 Loratadine [Claritin] 10 mg PO DAILY 02/06/15 09/05/17 Metoprolol [Lopressor] 50 mg PO BID 02/06/15 09/05/17 Nitroglycerin [Nitrostat] 0.4 mg SL Q5M PRN #0 02/06/15 09/05/17 Omeprazole [PriLOSEC] 20 mg PO DAILY 02/06/15 09/05/17 Tiotropium [Spiriva] 18 mcg IH DAILY 02/06/15 09/05/17 Warfarin Sodium [Coumadin] 2.5 mg PO SUTUTH 02/06/15 09/05/17 Albuterol Sulfate [Albuterol 2 puff IH Q4HR PRN 03/03/15 09/05/17 Inhaler] Diltiazem CD (24hr) [Cardizem CD] 180 mg PO DAILY 06/27/15 09/05/17 Aspirin Enteric Coated [Aspirin EC] 81 mg PO DAILY 08/28/16 09/05/17 Atorvastatin Calcium [Lipitor] 20 mg PO HS 08/28/16 09/05/17 Levothyroxine [Synthroid] 75 mcg PO DAILY 08/28/16 09/05/17 Oxycodone HCl/Acetaminophen 1 - 2 tab PO Q4-6H PRN 12/31/16 09/05/17 [Percocet 10-325 mg Tablet] Furosemide [Lasix] 20 mg PO QPM 09/05/17 09/05/17 Potassium Chloride [Klor-Con 10 meq PO DAILY 09/05/17 09/05/17 Sprinkle] Warfarin [Coumadin] 3 mg PO MOWEFRSA 09/05/17 09/05/17 Previous Rx's Medication Instructions Recorded Levofloxacin [Levaquin] 750 mg PO Q48H #4 tablet 09/08/17 Oseltamivir Phosphate [Tamiflu] 30 mg PO BID #5 capsule 09/08/17 Allergies Allergy/AdvReac Type Severity Reaction Status Date / Time No Known Allergies Allergy Verified 10/01/17 16:38 Constitutional: Denies: fever, chills Cardiovascular: Reports: dyspnea on exertion, orthopnea, edema, paroxysmal nocturnal dyspnea. Denies: chest pain, palpitations Respiratory: Reports: cough. Denies: sputum production Gastrointestinal: Reports: abdominal pain Past Medical History - Past Medical History Medical history: Reports: arthritis, atrial fibrillation, cancer, CHF, COPD, coronary artery disease, GERD, hyperlipidemia, hypertension, myocardial infarction, peripheral artery disease, other Surgical history: Reports: angioplasty/stent, cholecystectomy, other Psychiatric history: Reports: no psych history - Social History Smoking Status: Former smoker Smokeless Tobacco Status: No Alcohol use: Reports: none Drug use: Reports: none Physical Exam - General Limitations: no limitations General appearance: alert, in no apparent distress Course Vital Signs Temperature 97.7 F 10/01/17 16:38 Pulse Rate 81 10/01/17 16:38 Respiratory Rate 20 10/01/17 16:38 Blood Pressure 125/72 10/01/17 16:38 O2 Sat by Pulse Oximetry 96 10/01/17 16:38 Temperature 97.7 F 10/01/17 16:38 Pulse Rate 82 10/01/17 18:42 Respiratory Rate 16 10/01/17 18:42 Blood Pressure 121/79 10/01/17 18:42 O2 Sat by Pulse Oximetry 95 10/01/17 18:42 Oxygen Delivery Oxygen Delivery Room Air Medical Decision Making - Lab Data Result diagrams: 10/01/17 17:36 10/01/17 17:36 Lab Results 10/01/17 10/01/17 Range/Units 17:36 17:36 WBC 4.9 (4.3-11.1) K/mcL RBC 4.76 (4.19-5.50) M/mcL Hgb 14.3 (12.9-16.9) g/dL Hct 43.1 (37.5-50.1) % MCV 90.5 (83.0-100.0) fL MCH 30.0 (28.0-33.3) pg MCHC 33.2 (31.6-35.5) g/dL RDW 13.4 (11.5-14.5) % Plt Count 166 (140-400) K/mcL MPV 9.9 (9.4-12.4) fL Immature Gran % 0.6 (0-4) % Seg Neutrophils % 86.0 % Lymphocytes % 9.9 % Monocytes % 3.1 % Eosinophils % 0.0 % Basophils % 0.4 % Neutrophils # 4.2 (1.6-8.9) K/mcL Lymphocytes # 0.5 L (0.6-4.6) K/mcL Monocytes # 0.2 (0.0-1.3) K/mcL Eosinophils # 0.0 (0.0-0.6) K/mcL Basophils # 0.0 (0.0-0.2) K/mcL Nucleated RBCs/100 WBC 0.4 H (0) /100 WBC Sodium 135 L (136-145) mEq/L Potassium 4.0 (3.5-5.1) mEq/L Chloride 101 (98-107) mEq/L Carbon Dioxide 25 (23-29) mEq/L BUN 14 (8-23) mg/dL Creatinine 0.96 (0.70-1.30) mg/dL Est GFR ( Amer) > 60 (> 60) Est GFR (Non-Af Amer) > 60 (> 60) BUN/Creatinine Ratio 15 (6-26) Glucose 136 H (70-105) mg/dL Calculated Osmolality 283 (280-300) Calcium 9.4 (8.6-10.3) mg/dL Troponin I < 0.03 (< 0.04) ng/mL Attestation Statement - Attestation Attestation: I examined this patient and my medical decision-making was reviewed with the Resident Physician. I agree with the documented findings, disposition and treatment plan as described except to the extent set forth below. 82 year old male presents to the ED with compaints of dyspnea from [facility] urgent care and states that he was concerned about his CHF excerbation because of increased dyspnea. At urgent care he had an elevated BNP and dry cough. Cardiopulmonar workup is otherwise negative. WE will admit to medicine for CHF excerabtion
--- NOTE | 2017-10-01 22:18 | Internal Med History&Physical ---
Date of Encounter: 10/01/17 Time of Encounter: 21:00 Assessment and Plan (1) Acute exacerbation of congestive heart failure Current visit: Yes Status: Acute -Patient with orthopnea and BNP of 2720 in addition to pulmonary edema on chest x-ray -Echocardiogram on 08/2017 showed LVEF of 45% -Will continue IV diuresis Qualifiers: Heart failure type: unspecified Qualified Code(s): I50.9 - Heart failure, unspecified (2) Chronic a-fib Current visit: No Status: Chronic -Rate controlled; continue OAC (3) HTN (hypertension) Current visit: No Status: Chronic Controlled; continue home medications Qualifiers: Hypertension type: essential hypertension Qualified Code(s): I10 - Essential (primary) hypertension (4) Hypothyroidism (acquired) Current visit: No Status: Chronic Continue levothyroxine (5) DVT prophylaxis Current visit: No Status: Acute Subcutaneous heparin Internal Medicine - H&P: HPI Chief complaint: Shortness of breath Admitted From: Home Plans for Post Hospital Care: Home History of present illness: Patient is a 60-year-old male with past medical history significant for coronary artery disease with 6 stents in addition to pacemaker and atrial fibrillation presents to the ER on 10/01/17 due to shortness of breath/orthopnea. Patient reports a one-day history of orthopnea and worsening shortness of breath so decided to come to the ER for evaluation. In the ER, patient was found to have a BNP of 2720 and chest x-ray showing pulmonary edema. Patient will be admitted to the medical surgical floor for new onset of CHF. Past Med Surg Social Fam HX - Past Medical History Medical history: arthritis, atrial fibrillation, cancer, CHF, COPD, coronary artery disease, GERD, hyperlipidemia, hypertension, myocardial infarction, peripheral artery disease, other Psychiatric history: no psych history - Past Surgical History Surgical History: angioplasty/stent, cholecystectomy, other - Social History Smoking Status: Former smoker Smokeless Tobacco Status: No Alcohol use: none Drug use: none - Family History Mother Living Status: Hx Family Cardiac Disorders: Yes (GA, CAD, HTN, HLD) Hx Family Respiratory Disorders: No Father Living Status: Hx Family Cardiac Disorders: Yes (GA, HLD, HTN) Hx Family Respiratory Disorders: No Brother Living Status: Hx Family Cardiac Disorders: Yes (GA with stent) Sister Living Status: Still Living Hx Family Cardiac Disorders: Yes (GA with stent) Internal Medicine - H&P: Meds Budesonide/Formoterol Fumarate [Symbicort 160-4.5 Mcg Inhaler] 2 puff IH BID 10/18 [History] Furosemide [Lasix] 40 mg PO QAM 02/06/15 [History] Loratadine [Claritin] 10 mg PO DAILY 02/06/15 [History] Nitroglycerin [Nitrostat] 0.4 mg SL Q5M PRN #0 02/06/15 [History] Omeprazole [PriLOSEC] 20 mg PO DAILY 02/06/15 [History] Tiotropium [Spiriva] 18 mcg IH DAILY 02/06/15 [History] Warfarin Sodium [Coumadin] 1 mg PO TU 02/06/15 [History] Albuterol Sulfate [Albuterol Inhaler] 2 puff IH Q4HR PRN 03/03/15 [History] Diltiazem CD (24hr) [Cardizem CD] 180 mg PO DAILY 06/27/15 [History] Aspirin Enteric Coated [Aspirin EC] 81 mg PO DAILY 08/28/16 [History] Atorvastatin Calcium [Lipitor] 20 mg PO HS 08/28/16 [History] Oxycodone HCl/Acetaminophen [Percocet 10-325 mg Tablet] 1 - 2 tab PO Q4-6H PRN 12/31/16 [History] Furosemide [Lasix] 20 mg PO 1200 09/05/17 [History] Warfarin [Coumadin] 3 mg PO WEFRSA 09/05/17 [History] Levothyroxine [Synthroid] 75 mcg PO 0630 10/01/17 [History] Metoprolol [Lopressor] 50 mg PO BID 10/01/17 [History] Warfarin [Coumadin] 2.5 mg PO SUTH 10/01/17 [History] 3 Allergy/AdvReac Type Severity Reaction Status Date / Time No Known Allergies Allergy Verified 10/01/17 16:38 All Systems PM: A 10-system review of systems was performed and is negative for pertinent findings except as documented above in the HPI. - Constitutional Vitals: Temp Pulse Resp BP Pulse Ox 97.6 F 81 16 131/79 97 10/01/17 20:15 10/01/17 20:15 10/01/17 20:15 10/01/17 20:15 10/01/17 20:15 General appearance: Present: no acute distress - Eye Eye exam: Present: normal appearance - ENT ENT exam: Present: mucous membranes moist - Respiratory Respiratory exam: Present: CTAB. Absent: accessory muscle use, rales, rhonchi, wheezes - Cardiovascular Cardiovascular exam: Present: RRR, +S1, +S2. Absent: diastolic murmur, gallop, rubs, systolic murmur - GI/Abdominal GI/Abdominal exam: Present: normal bowel sounds, soft, no peritoneal signs. Absent: distended, tenderness - Extremities Exam Extremities exam: Present: pedal edema - Neurological Exam Neurological exam: Present: oriented X3 - Psychiatric Psychiatric exam: Present: normal mood - Skin Skin exam: Present: normal color Internal Med - H&P Results - Labs CBC & Chem 7: 10/01/17 17:36 10/01/17 17:36
[2017-10-01] MEDS ORDERED: Naloxone 0.4 MG/ML INJ IVP PRN (22:20)
[2017-10-01] MEDS ORDERED: Nitroglycerin 0.4 MG TAB.SUBL SL PRN (22:22)
[2017-10-01] MEDS ORDERED: *HR* OxyCODONE/APAP 10/325 TABLET PO PRN (22:22)
[2017-10-01] MEDS ORDERED: *HR* Warfarin 2.5 MG TABLET PO SCH (22:30)
[2017-10-01 23:33] LABS: INR 2.7; Prothrombin Time 30.1 Seconds (9.4-12.1)
[2017-10-01] MEDS ORDERED: Warfarin perPT PO PRN (23:58)
[2017-10-02] MEDS: *HR* OxyCODONE/APAP 10/325 TABLET PO PRN ×2 (00:03→06:25)
[2017-10-02 06:57] LABS: INR 2.7; Prothrombin Time 29.9 Seconds (9.4-12.1)
[2017-10-02 07:06] LABS: BUN/Creatinine Ratio 17 (6-26); Blood Urea Nitrogen 17 mg/dL (8-23); Calcium 8.8 mg/dL (8.6-10.3); Carbon Dioxide 26 mEq/L (23-29); Chloride 103 mEq/L (98-107); Glucose 92 mg/dL (70-105); Osmolality,Calculated 289 (280-300); Potassium 3.3 mEq/L (3.5-5.1); Sodium 139 mEq/L (136-145); eGFR For African Americans > 60 (> 60); eGFR For Non-African Americans > 60 (> 60)
[2017-10-02 07:08] LABS: Basophils % 0.2 %; Eosinophils % 0.2 %; Hematocrit 39.5 % (37.5-50.1); Immature Granulocytes % 0.6 % (0-4); Lymphocytes % 15.6 %; Mean Corpuscular HGB Conc 32.9 g/dL (31.6-35.5); Mean Corpuscular Hemoglobin 29.6 pg (28.0-33.3); Mean Platelet Volume 10.5 fL (9.4-12.4); Monocytes # 0.7 K/mcL (0.0-1.3); Monocytes % 10.9 %; Neutrophils # 4.6 K/mcL (1.6-8.9); Platelet Count 164 K/mcL (140-400); Red Blood Count 4.39 M/mcL (4.19-5.50); Red Cell Distribution Width 13.3 % (11.5-14.5); Segmented Neutrophils % 72.5 %
[2017-10-02] MEDS ORDERED: Furosemide 40 MG/4 ML VIAL IVP SCH (09:00)
[2017-10-02] MEDS ORDERED: Aspirin Enteric Coated 81 MG Tablet PO SCH (09:00)
[2017-10-02] MEDS ORDERED: Tiotropium 18 MCG inhalation IH SCH (09:00)
[2017-10-02] MEDS ORDERED: Diltiazem CD (24hr) 180 MG CAPSULE PO SCH (09:00)
[2017-10-02] MEDS ORDERED: Loratadine 10 MG TABLET PO SCH (09:00)
[2017-10-02] MEDS ORDERED: Budesonide/Formoterol 160/4.5 MDI IH SCH (10:00)
--- NOTE | 2017-10-02 10:25 | Discharge Summary ---
- NOTES TO OUTPATIENT PROVIDER Notes to Outpatient Provider: Patient dry weight was established at 160Ibs here. I advised him to double up on lasix on days he weighs >163Ibs. I wrote of daily 20 meq potassium too and told him to double up on that if he takes an extra lasix Orders not resulted at time of discharge: Pending orders 10/03/17 04:00 PT/INR [Prothrombin Time INR] [COAG] AM 04010/04/17 04:00 PT/INR [Prothrombin Time INR] [COAG] AM 04010/05/17 04:00 PT/INR [Prothrombin Time INR] [COAG] AM 04010/06/17 04:00 PT/INR [Prothrombin Time INR] [COAG] AM 39910/07/17 04:00 PT/INR [Prothrombin Time INR] [COAG] AM 040 Date of Encounter: 10/02/17 Time of Encounter: 10:23 - Discharge Diagnosis (1) Acute systolic congestive heart failure Priority: Primary Status: Acute (2) CAD (coronary artery disease) Priority: Secondary Status: Chronic Qualifiers: Coronary Disease-Associated Artery/Lesion type: [place] artery [place] vs. transplanted heart: [place] heart Associated angina: without angina Qualified Code(s): I25.10 - Atherosclerotic heart disease of [place] coronary artery without angina pectoris (3) COPD (chronic obstructive pulmonary disease) Priority: Secondary Status: Chronic Qualifiers: COPD type: emphysema Emphysema type: unspecified Qualified Code(s): J43.9 - Emphysema, unspecified (4) HTN (hypertension) Priority: Secondary Status: Chronic Qualifiers: Hypertension type: essential hypertension Qualified Code(s): I10 - Essential (primary) hypertension Hospital course: Mr. Kraft is a 82 year old male with past medical history significant for systolic heart failure, coronary artery disease with 6 stents in addition to pacemaker and atrial fibrillation presented to the ER on 10/01/17 due to shortness of breath/orthopnea. In the ER, patient was found to have a BNP of 2720 and chest x-ray showing pulmonary edema. He was admitted to the hospitalist service. Was diuresed with IV Lasix. He achieved euvolemic by the following day and was on room air. He was advised to take an extra dose of 40 mg Lasix at home if he weighs more than 163 pounds. I also gave him a prescription for potassium supplements and tone taken extra dose of potassium supplement on days that he takes an extra Lasix. He was stable for discharge on 10/02. - Time Spent with Patient Total time spent providing and/or coordinating discharge services: Greater than 30 minutes - Discharge Medications Prescriptions: Potassium Chloride [K-Tab ER] 20 meq PO DAILY #30 tablet.er Home Medications: Budesonide/Formoterol Fumarate [Symbicort 160-4.5 Mcg Inhaler] 2 puff IH BID 10/18 [History] Furosemide [Lasix] 40 mg PO QAM 02/06/15 [History] Loratadine [Claritin] 10 mg PO DAILY 02/06/15 [History] Nitroglycerin [Nitrostat] 0.4 mg SL Q5M PRN #0 02/06/15 [History] Omeprazole [PriLOSEC] 20 mg PO DAILY 02/06/15 [History] Tiotropium [Spiriva] 18 mcg IH DAILY 02/06/15 [History] Warfarin Sodium [Coumadin] 1 mg PO TU 02/06/15 [History] Albuterol Sulfate [Albuterol Inhaler] 2 puff IH Q4HR PRN 03/03/15 [History] Diltiazem CD (24hr) [Cardizem CD] 180 mg PO DAILY 06/27/15 [History] Aspirin Enteric Coated [Aspirin EC] 81 mg PO DAILY 08/28/16 [History] Atorvastatin Calcium [Lipitor] 20 mg PO HS 08/28/16 [History] Oxycodone HCl/Acetaminophen [Percocet 10-325 mg Tablet] 1 - 2 tab PO Q4-6H PRN 12/31/16 [History] Furosemide [Lasix] 20 mg PO 1200 09/05/17 [History] Warfarin [Coumadin] 3 mg PO WEFRSA 09/05/17 [History] Levothyroxine [Synthroid] 75 mcg PO 0630 10/01/17 [History] Metoprolol [Lopressor] 50 mg PO BID 10/01/17 [History] Warfarin [Coumadin] 2.5 mg PO SUTH 10/01/17 [History] Potassium Chloride [K-Tab ER] 20 meq PO DAILY #30 tablet.er 10/02/17 [Rx] Allergies/Adverse Reactions: 3 Allergy/AdvReac Type Severity Reaction Status Date / Time No Known Allergies Allergy Verified 10/01/17 16:38 Date of admission: 10/01/17 18:47 Primary care physician: Michael Meyers - Constitutional Vitals: Temp Pulse Resp BP Pulse Ox 98.0 F 76 17 125/83 94 10/02/17 07:18 10/02/17 07:18 10/02/17 07:18 10/02/17 07:18 10/02/17 07:18 General appearance: Present: no acute distress Exam: GEN: NAD CVS: RRR. S1, S2, No m/r/g RESP: CTAB ABD: Soft, NT, ND, +BS EXT: No edema. 2+ DP. No rashes NEURO: Nonfocal - Patient Status Disposition: Home, Self-Care Condition: Fair Overall status at discharge: patient is progressing back to baseline - Discharge Instructions Instructions: Heart Failure (DC), Chronic Obstructive Pulmonary Disease (DC), Chronic Hypertension (DC) Follow Up With: Michael Meyers, [Primary Care Provider] - (please schedule a follow up appointment with your primary care provider within 10 days. Thank you) Additional Instructions: Take extra dose of lasix on morning on which you weigh >163Ibs Take an extra dose of potassium pill if you take an extra lasix - Diet and Activity Activity: increase activity as tolerated Diet: low salt diet
[2017-10-02 11:10] VITALS: BP 117/82
[2017-10-02] MEDS ORDERED: *HR* Warfarin 3 MG TABLET PO ONE (18:00)
[2017-10-02] MEDS ORDERED: *HR* Warfarin 3 MG TABLET PO SCH (22:22)
--- NOTE | 2017-10-03 16:27 | Electrocardiograph Report ---
[place] [id number] Test Date: 2017-10-01 Pat Name: Ayad Kraft Department: 104 Room: 3B Gender: M [employer] Supervisor: HANS : [id number] Requested By: Pardeep Gan Order Number: [id number] Reading MD: Aurora Tomas Measurements Intervals [place] Rate: 73 P: ND: 0 QRS: 6 QRSD: 120 T: 204 QT: 380 QTc: 406 Interpretive Statements ATRIAL FLUTTER/TACHYCARDIA INTRAVENTRICULAR CONDUCTION DELAY [110+ ms QRS DURATION] MODERATE ST DEPRESSION [0.05+ mV ST DEPRESSION] Electronically Signed On 10-03-2017 16:25:32 EDT by Aurora Tomas
== END 2017-10-02 14:27 | disposition home or self-care (01) ==
LOC: EMEROO 16:23 → 3BNU 16:23
PROVIDERS: ADMIT Hospitalist; ATTEND Registered Nurse